=== PATIENT | female | born 1990 | race Two or more races ===

== ENCOUNTER 2025-06-18 07:57 | Outpatient (CLI) | payer OTHER | END 2025-06-18 07:59 | disposition home or self-care (01) | LOC: PRENATAL 07:57 | PROVIDERS: ATTEND Obstetrics & Gynecology Maternal & Fetal Medicine | DX: O36.80X0 Pregnancy with inconclusive fetal viability, not applicable or unspecified (principal); Z36.82 Encounter for antenatal screening for nuchal translucency; Z14.8 Genetic carrier of other disease; O99.210 Obesity complicating pregnancy, unspecified trimester; O10.019 Pre-existing essential hypertension complicating pregnancy, unspecified trimester; O26.20 Pregnancy care for patient with recurrent pregnancy loss, unspecified trimester; Z3A.12 12 weeks gestation of pregnancy ==

== ENCOUNTER 2025-08-14 08:01 | Outpatient (CLI) | payer OTHER ==
[~2025-08-14 08:01] MED LIST: LABETALOL HCL200 MG PO
== END 2025-08-14 08:02 | disposition home or self-care (01) ==
LOC: PRENATAL 08:01
PROVIDERS: ATTEND Obstetrics & Gynecology Maternal & Fetal Medicine
DX: O44.02 Complete placenta previa NOS or without hemorrhage, second trimester (principal); O99.212 Obesity complicating pregnancy, second trimester; O10.012 Pre-existing essential hypertension complicating pregnancy, second trimester; Z14.8 Genetic carrier of other disease; Z3A.20 20 weeks gestation of pregnancy

== ENCOUNTER 2025-09-21 12:02 | Emergency (ER) | payer OTHER ==
[~2025-09-21] VITALS: Ht 188 cm; Wt 161.9 kg
[~2025-09-21 12:02] MED LIST changes: +CHILDREN'S ASPI81 MG; +PRENATAL TABLE1 EAC1
[2025-09-21] MEDS ORDERED: GUAIFENESIN 600 MG TABLET.SA PO ONE (20:00)
[2025-09-21] MEDS ORDERED: ACETAMINOPHEN 500 MG GEL..CAP PO ONE (20:00)
[2025-09-21] MEDS ORDERED: IPRATROPIUM BROMIDE 0.5 MG/2.5 ML AMPUL.NEB IH ONE ×2 (20:00→21:14)
[2025-09-21] MEDS ORDERED: LEVALBUTEROL HCL 1.25 MG/3 ML SOLUTION IH ONE ×2 (20:00→21:14)
[2025-09-21 21:46] LABS: BASO % 0.3 % (0.1-1.2); EOS # 0.13 (0.04-0.54); EOS % 1.4 % (0.7-7.0); LYMPH # 2.45 (1.18-3.74); LYMPH % 26.5 % (19.3-53.1); MEAN PLATELET VOLUME 10.00 fl (9.4-12.4); MONO # 0.53 (0.24-0.82); MONO % 5.7 % (4.7-12.5); NEUT # 6.07 (1.56-6.13); NEUT % 65.9 % (34.0-71.1); RED CELL DISTRIBUTION WIDTH 15.8 % (11.6-14.4)
[2025-09-21 22:09] LABS: URINE APPEARANCE Turbid; URINE BILIRRUBIN Negative (NEGATIVE); URINE BLOOD Moderate; URINE COLOR Dark Yellow; URINE GLUCOSE Negative (NEGATIVE); URINE KETONE Trace (NEGATIVE); URINE LEUKOCYTE Moderate; URINE NITRATE Negative; URINE PROTEIN 30 (NEGATIVE); URINE UROBILINOGEN 1.0 E.U./dl
[2025-09-21 22:10] LABS: COVID-19 AG NEGATIVE (NEGATIVE)
[2025-09-21 22:13] LABS: URINE EPITHELIAL CELLS 170.8 uL (0.0-38.8); URINE RBC 104.1 uL (0.0-20.8); URINE WBC 608.5 uL (0.0-23.2)
[2025-09-21 22:20] LABS: URINE BACTERIA > 9821.5 uL (0.0-1933); URINE CAST 0.70 uL (0.0-1.40); URINE CRYSTALS FEW /HPF
[2025-09-21 22:25] LABS: ALT/SGPT 27.0 U/L (12-78); AST/SGOT 11.0 U/L (15-37); BILIRUBIN TOTAL 0.24 mg/dL (0.3-1.2); BUN CREA RATIO 19.0 (7.0-25.0); CREATININE SERUM 0.42 mg/dL (0.55-1.02); GFR 171.69; GLOBULINA 3.6 G/DL (2.4-3.5); GLUCOSE FASTING 80.0 mg/dL (65-100); OSMOLALITY SERUM 279.0 MOSM/KG (275-295)
[2025-09-21] MEDS ORDERED: MUCINEX1200 MG PO (23:02)
[2025-09-21] MEDS ORDERED: ALBUTEROL1.25 MG/3 IH (23:02)
== END 2025-09-21 23:22 | disposition home or self-care (01) ==
LOC: ER 12:02
PROVIDERS: General Practice
DX: O26.892 Other specified pregnancy related conditions, second trimester (principal); Z3A.26 26 weeks gestation of pregnancy; R05.8 Other specified cough; J02.9 Acute pharyngitis, unspecified; I10 Essential (primary) hypertension; Z20.822 Contact with and (suspected) exposure to COVID-19

== ENCOUNTER → 2025-09-24 06:28 | Outpatient (CLI) | payer OTHER ==
[~2025-09-24 06:28] MED LIST changes: +ALBUTEROL1.25 MG/3 IH; +MUCINEX1200 MG PO
== END | disposition home or self-care (01) ==
LOC: PRENATAL 06:28
PROVIDERS: ATTEND Obstetrics & Gynecology Maternal & Fetal Medicine
DX: O26.842 Uterine size-date discrepancy, second trimester (principal); O99.212 Obesity complicating pregnancy, second trimester; O10.012 Pre-existing essential hypertension complicating pregnancy, second trimester; Z3A.25 25 weeks gestation of pregnancy